=== PATIENT | male | born 2000 | race African-American/Black ===

== ENCOUNTER 2020-01-11 18:22 | Emergency (ER) | payer MEDICAID ==
[~2020-01-11] VITALS: Ht 182.9 cm; Wt 103.0 kg
[2020-01-11] MEDS ORDERED: IBUPROFEN 600MG TABLET PO STA (19:22)
[2020-01-11] MEDS ORDERED: BACITRACIN 15GM TUBE TOP ONE (19:30)
[2020-01-11 21:12] LABS: BASOPHILS % 0.6 % (0.0-2.0); HEMATOCRIT. 44.1 % (42.0-52.0); LYMPHOCYTES % 19.6 % (20.0-50.0); MEAN PLATELET VOLUME 10.9 fl (7.4-10.4); MONOCYTES % 6.4 % (2.0-8.0); NEUTROPHILS % 72.4 % (40.0-76.0); PLATELET 208 x1000/uL (130-400); RED BLOOD CELL COUNT 6.39 mill/uL (4.7-6.1); RED CELL DISTRIBUTION WIDTH 15.2 % (11.6-14.6)
[2020-01-11 21:16] LABS: CHLORIDE 109 mEq/L (98-107)
[2020-01-11 22:07] VITALS: BP 154/68
[2020-01-11 22:07] LABS: PLATELET ESTIMATE NORMAL
== END 2020-01-11 22:24 | disposition home or self-care (01) ==
LOC: ER 18:22
DX: R55 Syncope and collapse (principal); E86.0 Dehydration
CPT/HCPCS: 36415; 80053; 85025; 93005; 99284